=== PATIENT | male | born 1950 | race Caucasian/White ===

== ENCOUNTER 2018-04-17 08:17 | Day surgery (SDC) | payer MEDICARE, OTHER ==
[2018-04-16 09:41] VITALS: BMI 35.2
[~2018-04-17 08:17] MED LIST: LACTATED RINGERS 1,000 ML IV SCH
[2018-04-17] MEDS ORDERED: LIDOCAINE 1% 20 ML VIAL (10MG/ML) FOR IV START INTRADERMA ONE (09:16)
[2018-04-17 09:18] VITALS: TEMP 98.8
[2018-04-17] MEDS ORDERED: PROPOFOL 10 MG/ML 20 ML VIAL IV ONE (10:27)
--- NOTE | 2018-04-17 10:27 | P.GSHP ---
History of Present Illness H&P Date: 04/17/18 Chief Complaint: Constipation This is a 68-year-old male who presents today for colonoscopy. Patient has issues with constipation. Past Medical History Past Medical History: Hyperlipidemia, Hypertension, Osteoarthritis (OA), Thyroid Disorder History of Any Multi-Drug Resistant Organisms: None Reported Past Surgical History: Cholecystectomy, Heart Catheterization With Stent, Joint Replacement, Tonsillectomy Additional Past Surgical History / Comment(s): yoav. knee replacements; colonoscopy Past Anesthesia/Blood Transfusion Reactions: No Reported Reaction Date of Last Stent Placement:: unknown Smoking Status: Former smoker - Past Family History Mother Family Medical History: No Reported History Brother(s) Family Medical History: Deep Vein Thrombosis (DVT) Medications and Allergies Home Medications Medication Instructions Recorded Confirmed Type Aspirin [Adult Low Dose Aspirin EC] 81 mg PO DAILY 04/16/18 04/16/18 History Atorvastatin [Lipitor] 80 mg PO HS 04/16/18 04/16/18 History Diclofenac Sodium 50 mg PO DAILY 04/16/18 04/16/18 History Levothyroxine Sodium [Levoxyl] 175 mcg PO DAILY 04/16/18 04/16/18 History Lisdexamfetamine Dimesylate 20 mg PO QAM 04/16/18 04/16/18 History [Vyvanse] Lisinopril [Prinivil] 5 mg PO DAILY 04/16/18 04/16/18 History Metoprolol Tartrate 25 mg PO BID 04/16/18 04/16/18 History Tamsulosin [Flomax] 0.4 mg PO DAILY 04/16/18 04/16/18 History Vit C/E/Zn/Coppr/Lutein/Zeaxan 1 each PO DAILY 04/16/18 04/16/18 History [Preservision Areds 2 Softgel] Allergies Allergy/AdvReac Type Severity Reaction Status Date / Time No Known Allergies Allergy Verified 04/16/18 09:28 Surgical - Exam Vital Signs Temp Pulse Resp BP Pulse Ox 98.8 F 60 18 117/60 92 L 04/17/18 08:59 04/17/18 08:59 04/17/18 08:59 04/17/18 08:59 04/17/18 08:59 - General well developed, no distress - Eyes PERRL - ENT normal pinna - Neck no masses - Respiratory normal expansion - Cardiovascular Rhythm: regular - Abdomen Abdomen: soft, non tender Assessment and Plan Assessment: Constipation. We'll perform colonoscopy.
[2018-04-17 10:47] VITALS: PULSE 55
[2018-04-17 10:58] VITALS: BP 115/60; RESP 16
--- NOTE | 2018-04-17 11:39 | P.OP ---
Date of Procedure: 04/17/18 Preoperative Diagnosis: Constipation Postoperative Diagnosis: Diverticulosis Procedure(s) Performed: Colonoscopy Anesthesia: MAC Surgeon: Ryland Chavez Pathology: none sent Condition: stable Disposition: PACU Description of Procedure: The patient's placed on the endoscopy table lateral position. He received IV sedation. Digital rectal exam was performed which revealed no abnormalities. The prostate was symmetric without nodules. The flexible colonoscope was then placed patient anus passed throughout the entire colon. The ileocecal valve was visualized. The cecum, ascending and transverse colon appeared normal. In the descending; there is extensive diverticular changes. There is no evidence of diverticula is. The scope was then brought back the rectum and this appeared normal. Scope was withdrawn for patient.
[2018-04-17] MEDS ORDERED: LACTATED RINGERS 1,000 ML IV SCH (21:45)
== END 2018-04-17 11:34 | disposition home or self-care (01) ==
LOC: ORWHC2ENDO 08:17
PROVIDERS: ATTEND Surgery
DX: K57.90 Diverticulosis of intestine, part unspecified, without perforation or abscess without bleeding (principal); E78.5 Hyperlipidemia, unspecified; I10 Essential (primary) hypertension; M19.90 Unspecified osteoarthritis, unspecified site; E07.9 Disorder of thyroid, unspecified; Z87.891 Personal history of nicotine dependence; Z79.82 Long term (current) use of aspirin; Z79.890 Hormone replacement therapy; Z79.1 Long term (current) use of non-steroidal anti-inflammatories (NSAID); Z79.899 Other long term (current) drug therapy
CPT/HCPCS: 45378; J2704

== ENCOUNTER → 2019-05-09 | Outpatient (CLI) | payer MEDICARE, OTHER ==
--- NOTE | 2019-05-09 09:02 | US ---
EXAMINATION TYPE: US abdomen complete DATE OF EXAM: 05/09/2019 COMPARISON: 2012 CLINICAL HISTORY: 69-year-old male B19.20 Hepatitis c. TECHNIQUE: Multiple sonographic images of the abdomen are obtained. FINDINGS: Fry Cook notes: Large body habitus EXAM MEASUREMENTS: Liver Length: 18.1 cm Gallbladder: Surgically absent CBD: 0.3 cm Spleen: 8.6 cm Right Kidney: 10.2 x 4.9 x 5.1 cm Left Kidney: 10.6 x 5.1 x 5.5 cm Pancreas: Obscured by bowel gas Liver: Mildly enlarged but otherwise with homogeneous appearance and no focal lesion. Gallbladder: Surgically absent CBD: wnl Spleen: wnl Right Kidney: small inferior cyst 0.8 x 0.5 x 0.7 cm. No hydronephrosis. Left Kidney: 9 mm echogenic focus in the upper pole and 4 mm in the lower pole suggest nonobstructiv e calculi. No hydronephrosis. Upper IVC: wnl Abd Aorta: wnl IMPRESSION: 1. Mild hepatomegaly (18.1 cm) but with otherwise unremarkable sonographic appearance to the liver. 2. Status post cholecystectomy. No biliary ductal dilatation. 3. A couple of nonobstructive left renal calculi.
== END | disposition home or self-care (01) ==
LOC: RADUSWWP 07:39
PROVIDERS: ATTEND Internal Medicine Infectious Disease
DX: R16.0 Hepatomegaly, not elsewhere classified (principal); N20.0 Calculus of kidney; Z90.49 Acquired absence of other specified parts of digestive tract; B19.20 Unspecified viral hepatitis C without hepatic coma
CPT/HCPCS: 76700